=== PATIENT | female | born 1935 | race Two or more races ===

== ENCOUNTER 2020-05-12 13:52 | Inpatient (IN) | payer OTHER ==
[~2020-05-12] VITALS: Ht 165.1 cm; Wt 86.2 kg
[2020-05-12] MEDS ORDERED: ALBUTEROL 6.7GM HFA INHALER ORI ONE (14:45)
[2020-05-12 16:26] LABS: EOSINOPHILS % 6.7 % (0.0-5.0); HEMATOCRIT. 26.9 % (36.0-48.0); HEMOGLOBIN. 8.9 g/dL (12.0-16.0); LYMPHOCYTES % 26.1 % (20.0-50.0); MEAN CORPUSCULAR VOLUME 78.1 fL (81.0-99.0); MEAN PLATELET VOLUME 9.2 fl (7.4-10.4); MONOCYTES % 8.8 % (2.0-8.0); NEUTROPHILS % 56.4 % (40.0-76.0); PLATELET 327 x1000/uL (130-400); RED BLOOD CELL COUNT 3.45 mill/uL (4.2-5.4); RED CELL DISTRIBUTION WIDTH 15.8 % (11.6-14.6)
[2020-05-12] MEDS ORDERED: PREDNISONE 20MG TABLET PO ONE (16:30)
[2020-05-12 16:34] LABS: CHLORIDE 107 mEq/L (98-107)
[2020-05-13] MEDS ORDERED: IPRATROPIUM/ALBUTEROL 0.5-3(2.5)MG/3ML NEB ORI PRN (02:30)
[2020-05-13] MEDS ORDERED: ONDANSETRON HCL 4MG/2ML INJ IV PRN (02:30)
[2020-05-13] MEDS ORDERED: DOCUSATE SODIUM 100MG CAPSULE PO PRN (02:30)
[2020-05-13] MEDS ORDERED: DEXTROSE 50% WATER 50ML SYRINGE IV PRN (02:30)
[2020-05-13] MEDS ORDERED: ZOLPIDEM TARTRATE 5MG TABLET PO PRN (02:30)
[2020-05-13] MEDS ORDERED: GUAIFENESIN 200MG/10ML SUGAR FREE UDC PO PRN (02:30)
[2020-05-13] MEDS ORDERED: NITROGLYCERIN 0.4MG TABLET SL SL PRN (02:30)
[2020-05-13] MEDS ORDERED: TRAMADOL 50MG TABLET PO PRN (02:30)
[2020-05-13] MEDS ORDERED: CLONIDINE 0.1MG TABLET PO PRN (02:30)
[2020-05-13] MEDS ORDERED: ACETAMINOPHEN 325MG TABLET PO PRN ×2 (02:30)
[2020-05-13] MEDS ORDERED: MAGNESIUM/ALUMINUM HYDROXIDE/SIMETHICONE 30ML UDC PO PRN (02:30)
[2020-05-13] MEDS ORDERED: LORAZEPAM 0.5MG TABLET PO PRN (02:30)
[2020-05-13] MEDS ORDERED: IPRATROPIUM/ALBUTEROL 0.5-3(2.5)MG/3ML NEB HHN SCH (04:00)
[2020-05-13] MEDS ORDERED: METHYLPREDNISOLONE SOD SUCC 125 MG/2 ML VIAL IV SCH (06:00)
[2020-05-13] MEDS: AZITHROMYCIN 500 MG in DEXT 5% WATER 250 ML IV SCH (06:47)
[2020-05-13] MEDS: BLOOD SUGAR DIAGNOSTIC STRIP TEST SCH ×4 (06:48→21:00)
[2020-05-13] MEDS: SPIRONOLACTONE 25MG TABLET PO SCH ×2 (06:48→23:09)
[2020-05-13] MEDS: INSULIN LISPRO 100 UNITS/ML SUBCUT SCH ×3 (07:00→23:05)
[2020-05-13 08:10] LABS: CREATINE KINASE 69 IU/L (26-192)
[2020-05-13 08:12] LABS: CREATINE KINASE MB FRACTION < 1.0 ng/mL (0.5-3.6)
[2020-05-13] MEDS: ASCORBIC ACID 500 MG TABLET PO SCH ×2 (09:00→23:06)
[2020-05-13] MEDS: GUAIFENESIN 600MG ER TABLET PO SCH ×2 (09:13→23:06)
[2020-05-13] MEDS: FUROSEMIDE 40MG/4ML VIAL IVP SCH ×2 (09:13→23:07)
[2020-05-13] MEDS: ASPIRIN 325MG EC TABLET PO SCH (09:13)
[2020-05-13] MEDS: ZINC SULFATE 220 MG ( 50 ) CAPSULE PO SCH (09:14)
[2020-05-13] MEDS: FAMOTIDINE 20MG TABLET PO SCH (09:14)
[2020-05-13] MEDS: METHYLPREDNISOLONE SOD SUCC 40 MG/ML VIAL IV SCH ×2 (12:00→23:07)
[2020-05-13] MEDS: RIVAROXABAN 15 MG TABLET PO SCH (17:00)
[2020-05-13 19:39] LABS: CREATINE KINASE 72 IU/L (26-192)
[2020-05-13 19:40] LABS: CREATINE KINASE MB FRACTION 1.1 ng/mL (0.5-3.6)
[2020-05-13] MEDS ORDERED: INSULIN GLARGINE UD 100 UNITS/ML SYR SUBCUT SCH (22:00)
[2020-05-13 23:00] VITALS: BP 127/62
[2020-05-14] VITALS: BP 128/76
[2020-05-14 04:00] VITALS: BP 122/67
[2020-05-14] MEDS ORDERED: hydro (05:28)
[2020-05-14] MEDS ORDERED: ATOR10TA69 PO (05:28)
[2020-05-14] MEDS ORDERED: metformin (05:28)
[2020-05-14] MEDS ORDERED: METOPR (05:28)
[2020-05-14] MEDS ORDERED: LISIN (05:28)
[2020-05-14] MEDS ORDERED: [UNRECOGNIZED DRUG - OTHER] (05:28)
[2020-05-14] MEDS ORDERED: XAR15 MT (05:28)
[2020-05-14] MEDS: METHYLPREDNISOLONE SOD SUCC 40 MG/ML VIAL IV SCH ×2 (06:14→12:38)
[2020-05-14] MEDS: SPIRONOLACTONE 25MG TABLET PO SCH ×2 (06:18→17:45)
[2020-05-14] MEDS: INSULIN LISPRO 100 UNITS/ML SUBCUT SCH ×6 (06:28→21:16)
[2020-05-14] MEDS: BLOOD SUGAR DIAGNOSTIC STRIP TEST SCH ×4 (06:45→21:17)
[2020-05-14 08:30] VITALS: BP 106/55
[2020-05-14] MEDS: FAMOTIDINE 20MG TABLET PO SCH (09:50)
[2020-05-14] MEDS: ASPIRIN 325MG EC TABLET PO SCH (09:50)
[2020-05-14] MEDS: GUAIFENESIN 600MG ER TABLET PO SCH ×2 (09:50→21:16)
[2020-05-14] MEDS: FUROSEMIDE 40MG/4ML VIAL IVP SCH ×2 (09:50→21:16)
[2020-05-14] MEDS: ASCORBIC ACID 500 MG TABLET PO SCH ×2 (09:50→21:16)
[2020-05-14] MEDS: AZITHROMYCIN 500 MG in DEXT 5% WATER 250 ML IV SCH (09:50)
[2020-05-14] MEDS: ZINC SULFATE 220 MG ( 50 ) CAPSULE PO SCH (09:50)
[2020-05-14 12:14] VITALS: BP 116/60
[2020-05-14 16:00] VITALS: BP 135/71
[2020-05-14] MEDS: RIVAROXABAN 15 MG TABLET PO SCH (17:44)
[2020-05-14 20:00] VITALS: BP 140/86
[2020-05-14] MEDS ORDERED: METO-385 PO (20:54)
[2020-05-14] MEDS: INSULIN GLARGINE UD 100 UNITS/ML SYR SUBCUT SCH (21:17)
[2020-05-14] MEDS: METOPROLOL TARTRATE 25MG TABLET PO SCH (22:06)
[2020-05-14 23:17] LABS: BASOPHILS % 0.6 % (0.0-2.0); EOSINOPHILS % 0.1 % (0.0-5.0); HEMATOCRIT. 31.9 % (36.0-48.0); HEMOGLOBIN. 10.4 g/dL (12.0-16.0); LYMPHOCYTES % 9.8 % (20.0-50.0); MEAN CORPUSCULAR HEMOGLOBIN 25.5 pg (28.0-32.0); MEAN CORPUSCULAR VOLUME 78.2 fL (81.0-99.0); MEAN PLATELET VOLUME 8.8 fl (7.4-10.4); MONOCYTES % 7.2 % (2.0-8.0); NEUTROPHILS % 82.3 % (40.0-76.0); PLATELET 374 x1000/uL (130-400); RED BLOOD CELL COUNT 4.07 mill/uL (4.2-5.4); RED CELL DISTRIBUTION WIDTH 15.9 % (11.6-14.6)
[2020-05-14 23:23] LABS: CHLORIDE 101 mEq/L (98-107)
[2020-05-14 23:34] LABS: CREATINE KINASE 94 IU/L (26-192)
[2020-05-14 23:36] LABS: CREATINE KINASE MB FRACTION 1.7 ng/mL (0.5-3.6)
[2020-05-15] VITALS: BP 117/76
[2020-05-15 04:00] VITALS: BP 113/81
[2020-05-15] MEDS: BLOOD SUGAR DIAGNOSTIC STRIP TEST SCH ×2 (06:17→12:34)
[2020-05-15] MEDS: SPIRONOLACTONE 25MG TABLET PO SCH (06:26)
[2020-05-15] MEDS: INSULIN LISPRO 100 UNITS/ML SUBCUT SCH ×4 (06:27→13:10)
[2020-05-15 08:00] VITALS: BP 111/57
[2020-05-15] MEDS: ASPIRIN 325MG EC TABLET PO SCH (08:56)
[2020-05-15] MEDS: GUAIFENESIN 600MG ER TABLET PO SCH (08:56)
[2020-05-15] MEDS: METOPROLOL TARTRATE 25MG TABLET PO SCH (08:56)
[2020-05-15] MEDS: FAMOTIDINE 20MG TABLET PO SCH (08:56)
[2020-05-15] MEDS: ASCORBIC ACID 500 MG TABLET PO SCH (08:56)
[2020-05-15] MEDS: ZINC SULFATE 220 MG ( 50 ) CAPSULE PO SCH (08:56)
[2020-05-15] MEDS: FUROSEMIDE 40MG/4ML VIAL IVP SCH (08:57)
[2020-05-15] MEDS ORDERED: SODIUM CHLORIDE 0.9% 500 ML IV ONE (09:45)
[2020-05-15] MEDS ORDERED: METOPROLOL TARTRATE 25MG TABLET PO NR (09:45)
[2020-05-15] MEDS: AZITHROMYCIN 500 MG in DEXT 5% WATER 250 ML IV SCH (10:00)
[2020-05-15] MEDS: INSULIN GLARGINE UD 100 UNITS/ML SYR SUBCUT SCH (10:21)
[2020-05-15 12:00] VITALS: BP 99/59
[2020-05-15 15:20] VITALS: BP 115/60
[2020-05-15 16:00] VITALS: BP 115/60
[2020-05-15] MEDS ORDERED: METOPROLOL TARTRATE 25MG TABLET PO SCH (21:00)
== END 2020-05-15 17:30 | disposition short-term general hospital (02) | DRG 193 ==
LOC: ER 13:52 → MICUSO 18:26 → 5WST 05-13 21:00
PROVIDERS: ADMIT Internal Medicine; ATTEND Internal Medicine
DX: J18.9 Pneumonia, unspecified organism (principal); J96.00 Acute respiratory failure, unspecified whether with hypoxia or hypercapnia; N17.0 Acute kidney failure with tubular necrosis; J44.1 Chronic obstructive pulmonary disease with (acute) exacerbation; E44.1 Mild protein-calorie malnutrition; I50.30 Unspecified diastolic (congestive) heart failure; J44.0 Chronic obstructive pulmonary disease with (acute) lower respiratory infection; I11.0 Hypertensive heart disease with heart failure; I48.91 Unspecified atrial fibrillation; D63.8 Anemia in other chronic diseases classified elsewhere; Z20.828 Contact with and (suspected) exposure to other viral communicable diseases; I45.10 Unspecified right bundle-branch block; E11.9 Type 2 diabetes mellitus without complications; Z79.01 Long term (current) use of anticoagulants; Z87.891 Personal history of nicotine dependence; Z68.31 Body mass index [BMI] 31.0-31.9, adult
CPT/HCPCS: 36415; 71045; 80048; 80053; 80061; 82550; 82553; 82607; 82746; 82962; 83036; 83540; 83550; 83880; 84484; 85025; 87804; 93005; 93970; 94640; 99285; J0456; J1815; J1940; J2920; J2930; J7060; J7512; U0003-CS